=== PATIENT | male | born 1990 | race African-American/Black ===

== ENCOUNTER 2019-01-26 17:26 | Emergency (ER) | payer SELFPAY ==
[~2019-01-26] VITALS: Ht 175.3 cm; Wt 81.6 kg
[2019-01-26 17:50] VITALS: BP 120/75
--- NOTE | 2019-01-26 17:51 | NUR ---
ED Nurse Note:pt. was BIBA from the street with overdose, he is lethargic on arrival, VSS, was placed on telemetry monitor, blood and urine sent to labs, given IV fluids, continue monitor respiratory status, placed on N/C 2L O2
[2019-01-26 18:03] LABS: BASOPHILS % (AUTO) 1.1 % (0.0-2.0); HEMATOCRIT 43.8 % (42.0-52.0); HEMOGLOBIN 14.6 G/DL (14.2-18.0); LYMPHOCYTES % (AUTO) 26.2 % (20.0-45.0); MEAN CORPUSCULAR VOLUME 82 FL (80-99); MONOCYTES % (AUTO) 6.1 % (1.0-10.0); NEUTROPHILS % (AUTO) 60.5 % (45.0-75.0); PLATELET COUNT 275 K/UL (150-450); RED BLOOD COUNT 5.33 M/UL (4.70-6.10); RED CELL DISTRIBUTION WIDTH 12.6 % (11.6-14.8); WHITE BLOOD COUNT 8.4 K/UL (4.8-10.8)
[2019-01-26 18:06] LABS: ANION GAP 8 mmol/L (5-15); BLOOD UREA NITROGEN 9 mg/dL (7-18); CALCIUM 8.8 MG/DL (8.5-10.1); CARBON DIOXIDE 27 MMOL/L (21-32); CHLORIDE 106 MMOL/L (98-107); POTASSIUM 3.6 MMOL/L (3.5-5.1); SODIUM 141 MMOL/L (136-145)
[2019-01-26 18:10] LABS: ALANINE AMINOTRANSFERASE 19 U/L (12-78); ALBUMIN 3.6 G/DL (3.4-5.0); ALKALINE PHOSPHATASE 91 U/L (46-116); ASPARTATE AMINO TRANSFERASE 19 U/L (15-37); BILIRUBIN,TOTAL 0.4 MG/DL (0.2-1.0)
--- NOTE | 2019-01-26 19:08 | NUR ---
HAND-OFF: Report given to Rocio.
[2019-01-26 19:28] VITALS: BP 113/72
--- NOTE | 2019-01-26 19:28 | NUR ---
ED Nurse Note: Patient sleeping with no s/s of acute distress. vital signs stable.
--- NOTE | 2019-01-26 20:23 | NUR ---
ED Nurse Note: per charge nurse Alysha HANSEN, patient was moved to OB
--- NOTE | 2019-01-26 20:27 | NUR ---
patient is easily arouable but somewhat confused unable to remember his name . waiting to be alert and oriented for discharge
--- NOTE | 2019-01-26 20:28 | NUR ---
ED Nurse Note: Received report from Alysha/ Charge nurse. Pt was a/o x 3, confused. VSS, waiting for more alert to be d/c. Will cintinue to monitor.
--- NOTE | 2019-01-26 21:02 | Emergency Room Report ---
History of Present Illness General Chief Complaint: Overdose Source: EMS Present Illness HPI Identifying male presents to ED for evaluation. Brought in by EMS for altered mental status. Was found on street today agitated and screaming and yelling. Bystander states patient used drugs. Patient was given Versed IM by EMS. On arrival patient is lethargic and sleeping. Unable to provide any additional history at this time. No signs of distress. No other aggravating relieving factors. Denies any other associated symptoms Allergies: Coded Allergies: UNABLE TO ASSESS (Unverified , 01/26/19) Patient History Past Medical History: none Past Surgical History: none Pertinent Family History: none Social History: Reports: drug use; Denies: smoking, alcohol use Immunizations: UTD Reviewed Nursing Documentation: PMH: Agreed; PSxH: Agreed Review of Systems All Other Systems: limited Physical Exam Vital Signs Date Time Temp Pulse Resp B/P (MAP) Pulse Ox O2 Delivery O2 Flow Rate FiO2 01/26/19 17:24 97.9 100 18 155/100 98 Room Air Sp02 EP Interpretation: reviewed, normal General Appearance: no apparent distress, lethargic Head: normocephalic Eyes: bilateral eye normal inspection, bilateral eye PERRL, bilateral eye EOMI ENT: normal ENT inspection Neck: normal inspection Respiratory: chest non-tender, lungs clear, normal breath sounds, speaking full sentences Cardiovascular #1: regular rate, rhythm, no edema Gastrointestinal: normal bowel sounds, non tender, soft, non-distended, no guarding, no rebound Rectal: deferred Genitourinary: no CVA tenderness Musculoskeletal: normal inspection Neurologic: other - lethargic Psychiatric: other - lethargic Skin: normal inspection Lymphatic: normal inspection Medical Decision Making Homeless Attestation I, The treating physician Dr. Molina, has assessed and agrees that patient is medically stable for discharge to an outpatient disposition. Diagnostic Impression: Primary Impression: Substance abuse ER Course Hospital Course 28-year-old M presents to ED with altered mental status. given versed in field Differential diagnoses include: Psychosis, EtOH, drug abuse Clinical course patient placed on stretcher. On cardiac cath lab radiology technologist. After initial history and physical ordered labs, IV fluids Labs reviewed-electrolytes okay, no leukocytosis, hemoglobin/hematocrit stable, tox panel + for multilple substances Patient allowed to rest. Observed with stable vitals in ED. No signs of distress. Patient is now awake alert oriented. Ambulating without difficulty. Patient be safely discharged to home at this time. Homeless checklist completed. Safe for discharge with close outpatient follow-up. i. I feel this is a highly complex case requiring extensive working including EKG/Rhythm strip, Xray/CT/US, Blood/urine lab work, repeat exams while in ED, and administration of strong opiates/narcotics for pain control, admission to hospital or close patient follow up. Diagnosis -drug abuse Stable and discharged to home. Followup with PMD. Return to ED if symptoms recur or worsen Labs Test 01/26/19 17:23 01/26/19 17:35 White Blood Count 8.4 K/UL (4.8-10.8) Red Blood Count 5.33 M/UL (4.70-6.10) Hemoglobin 14.6 G/DL (14.2-18.0) Hematocrit 43.8 % (42.0-52.0) Mean Corpuscular Volume 82 FL (80-99) Mean Corpuscular Hemoglobin 27.3 PG (27.0-31.0) Mean Corpuscular Hemoglobin Concent 33.3 G/DL (32.0-36.0) Red Cell Distribution Width 12.6 % (11.6-14.8) Platelet Count 275 K/UL (150-450) Mean Platelet Volume 6.0 FL (6.5-10.1) Neutrophils (%) (Auto) 60.5 % (45.0-75.0) Lymphocytes (%) (Auto) 26.2 % (20.0-45.0) Monocytes (%) (Auto) 6.1 % (1.0-10.0) Eosinophils (%) (Auto) 6.0 % (0.0-3.0) Basophils (%) (Auto) 1.1 % (0.0-2.0) Sodium Level 141 MMOL/L (136-145) Potassium Level 3.6 MMOL/L (3.5-5.1) Chloride Level 106 MMOL/L (98-107) Carbon Dioxide Level 27 MMOL/L (21-32) Anion Gap 8 mmol/L (5-15) Blood Urea Nitrogen 9 mg/dL (7-18) Creatinine 1.0 MG/DL (0.55-1.30) Estimat Glomerular Filtration Rate > 60 mL/min (>60) Glucose Level 118 MG/DL (74-106) Calcium Level 8.8 MG/DL (8.5-10.1) Total Bilirubin 0.4 MG/DL (0.2-1.0) Aspartate Amino Transf (AST/SGOT) 19 U/L (15-37) Alanine Aminotransferase (ALT/SGPT) 19 U/L (12-78) Alkaline Phosphatase 91 U/L (46-116) Total Protein 7.3 G/DL (6.4-8.2) Albumin 3.6 G/DL (3.4-5.0) Globulin 3.7 g/dL Albumin/Globulin Ratio 1.0 (1.0-2.7) Salicylates Level 1.4 ug/mL (2.8-20) Acetaminophen Level < 2 MCG/ML (10-30) Serum Alcohol < 3 mg/dL Urine Opiates Screen Negative (NEGATIVE) Urine Barbiturates Screen Negative (NEGATIVE) Phencyclidine (PCP) Screen Positive (NEGATIVE) Urine Amphetamines Screen Positive (NEGATIVE) Urine Benzodiazepines Screen Negative (NEGATIVE) Urine Cocaine Screen Negative (NEGATIVE) Urine Marijuana (THC) Screen Positive (NEGATIVE) Last Vital Signs Date Time Temp Pulse Resp B/P (MAP) Pulse Ox O2 Delivery O2 Flow Rate FiO2 01/26/19 19:28 97.9 84 17 113/72 98 Room Air Status: improved Disposition: HOME, SELF-CARE Condition: Stable Referrals: NOT CHOSEN IPA/,REFERRING (PCP) Kehinde Molina MD January 26, 2019 21:02
[2019-01-26 21:17] VITALS: BP 112/71
--- NOTE | 2019-01-26 21:17 | NUR ---
ER DISCHARGE NOTE: Patient is cleared to be discharged per Dr. Molina. Pt is fully Allert X4, pt was possible a deaf. Pt ambulated with steady gait in the room around with stable vital signs on room air. Pt was given D/C and prescription instructions and was able to verbalize understanding. Pt's IV and ID band removed. Pt is able to ambulate with steady gait and took all belongings.
== END 2019-01-26 21:17 | disposition home or self-care (01) ==
LOC: EDBD 17:26 → EMR 19:35
DX: F19.10 Other psychoactive substance abuse, uncomplicated (principal); R41.82 Altered mental status, unspecified
CPT/HCPCS: 36415; 80053; 80307; 85025; 96360; 99284; G0480; 80329